=== PATIENT | female | born 1990 | race Caucasian/White ===

== ENCOUNTER 2019-07-14 11:12 | Emergency (ER) | payer OTHER, SELFPAY ==
[2019-07-14 11:17] VITALS: BP 123/77; PULSE 119; RESP 18; TEMP 36.4; O2SAT 99; BMI 26.5
--- NOTE | 2019-07-14 11:24 | US_ITS ---
STUDY: FIRST TRIMESTER OBSTETRICAL ULTRASOUND REASON FOR EXAM: Female, 29 years old. . Spotting. LMP: 05/20/2019 TECHNIQUE: Transvaginal PRIOR ULTRASOUND: None. FINDINGS: There is visualization of a single gestational sac in a normal intrauterine position. There is a visualized yolk sac. There is visualization of a live embryo. The crown-rump length (CRL) measures 1.01 cm, indicating an estimated gestational age (EGA) of 7 weeks, 1 days. The mean sac diameter corresponds to 8 weeks and 1 day. The average sonographic age is 7 weeks and 5 days. The estimated delivery date is 02/25/2020. There is demonstrated cardiac activity with a heart rate of 151 bpm. The uterus measures 11.1 x 7.6 x 6.1 cm. There is no demonstrated uterine fibroid. The cervix is closed. The right ovary measures 4.5 x 3.5 x 3.3 cm. There is a 3.1 x 3.0 cm cyst in the right ovary. There is no visualized right adnexal mass or complex lesion. The left ovary measures 3.0 x 2.5 x 2.3 cm. There is no left ovarian cyst. There is no visualized left adnexal mass or complex lesion. There is no fluid in the cul de sac. US/Transvaginal w/Preg US IMPRESSION: Single live intrauterine gestation at approximately 7 weeks and 5 days based on the current ultrasound. Right ovarian cyst. Electronically Signed: Juan Key, at 13:57 EDT Tel , Service support ,
--- NOTE | 2019-07-14 11:25 | ED.DCSUM_ITS ---
History of Present Illness <Jorge Crawford - Last Filed: 07/14/19 11:49> Informant: Patient, Significant Other Onset: Today Context: Sudden Onset Timing: Continuous Quality: spotting Location: vaginal Current Severity: Mild Maximum Severity: Moderate Worsened by: nothing Relieved by: nothing Associated Symptoms: denies Narrative: 29-year-old female who is Ab2 presents to the emergency department vaginal bleeding. She is approximately 8 to 9 weeks . She noticed some spotting this morning. She has not had bleeding up until this time. She has a history of 2 miscarriages. Her most recent one was about 8 months ago. She had a D&C done at that time. Prior to that about a year before that she had another miscarriage. She does have 1 child. She has not yet had care for this secondary to the current pandemic from the coronavirus. She denies any abdominal pain nausea vomiting or diarrhea. She has been able to eat and drink normally. She is not lightheaded or dizzy. She denies any other symptoms of bleeding. She denies history of blood disorder. Prior similar symptoms: Yes Recent Illness/Hospitalization: No <Raymond Polanco - Last Filed: 07/14/19 14:09> Chief Complaint: Vag Bld, Preg Past Medical History <Jorge Crawford - Last Filed: 07/14/19 11:49> Prior records reviewed: Yes Past Medical History: None Surgical History: - - D&C Lives: With Family Smoking Status: Never smoker Alcohol: None Drugs: None <Raymond Polanco - Last Filed: 07/14/19 14:09> - Allergies and Home Meds Allergies/Adverse Reactions: Allergies amoxicillin [Amoxicillin] Allergy (Verified 07/14/19 11:16) Hives Primary Care Physician: Too Loza DO [NON-STAFF] - Review of Systems All systems negative except as indicated General: Denies: Chills, Fever, Malaise Eyes: Denies: Visual changes - bilaterally, Blurred Vision - bilaterally, Diplopia ENT: Denies: Rhinorrhea, Sore throat Cardiovascular: Denies: Chest pain, Palpitations, Heart racing Respiratory: Denies: Dyspnea, Cough, Sputum, Dyspnea on exertion, Orthopnea, Paroxysmal nocturnal dyspnea Gastrointestinal: Denies: Abdominal pain, Nausea, Vomiting, Diarrhea, Constipation, Melena, Hematochezia Genitourinary: Reports: - - Vaginal bleeding. Denies: Dysuria, Hematuria, Frequency Musculoskeletal: Denies: Myalgias, Arthralgias, Neck pain, Back pain, Swelling, Extremity Pain Skin: Denies: Rash, Abscess, Abrasions, Wounds Neurological: Denies: Headache, Weakness, Parasthesia Endocrine: Denies: Polyuria, Polydipsia Hematologic: Denies: Easy bruising, Easy bleeding <Raymond Polanco - Last Filed: 07/14/19 14:09> Physical Exam Vital Signs/Narrative: Vital Signs Temp Pulse Resp BP Pulse Ox 07/14/19 11:17 97.5 F L 119 H 18 123/77 H 99 <Jorge Crawford - Last Filed: 07/14/19 11:49> Vital Signs/Narrative: Vital Signs Temp Pulse Resp BP Pulse Ox 07/14/19 11:17 97.5 F L 119 H 18 123/77 H 99 Inital Vital Signs reviewed: Yes General: Well nourished, Well developed, No Acute Distress Head: Normocephalic, Atraumatic Eyes: Perrl, EOMI ENT: Moist mucous membranes, No rhinorrhea Neck: Supple, Nontender, No lymphadenopathy, No JVD Cardiovascular: Regular rate, Regular rhythm, No murmurs Respiratory: No distress, CTA bilaterally, Chest nontender Abdomen: Soft, Nontender, Nondistended, Normal bowel sounds, No masses Back: Nontender, Normal Inspection. Negative for: CVA tenderness Extremities: Nontender, No edema Skin: Normal color, No rash, No Trauma Neurological: Alert, Oriented x3 Psychological: Normal Mood, Tearful <Raymond Polanco - Last Filed: 07/14/19 14:09> Diagnostic/Tx/Re-eval - Medical Decision Making Patient was seen with Raymond the physician's administrative services assistant agree with history and physical as above patient reports she wiped once and saw some blood-tinged fluid concerned she might be at 7 weeks she has not seen a physician she has taken home test she has prior miscarriages she has no pain no other complaints on exam the abdomen soft and nontender see the chart for full details we will check hCG and proceed from there <Jorge Crawford - Last Filed: 07/14/19 11:49> - Medical Decision Making Patient has no active bleeding on presentation to the emergency department. Laboratory work-up was unremarkable. Transvaginal ultrasound demonstrates single live intrauterine 7 weeks 5 days no other abnormalities are noted. Patient was reassured. She will be discharged with close follow-up with [facility] as an outpatient. She will be given referral to 1 to establish. Return precautions given. Discharged Impressions Obstetrics Ultrasound 07/14/19 11:24 IMPRESSION: Single live intrauterine gestation at approximately 7 weeks and 5 days based on the current ultrasound. Right ovarian cyst. Electronically Signed: Juan Key, at 13:57 EDT Tel , Service support , 07/14/19 11:24 Transvaginal w/Preg US [US] Stat Laboratory Results 07/14/19 07/14/19 07/14/19 11:45 12:02 12:02 WBC 7.1 RBC 4.43 Hgb 11.9 L Hct 36.1 L MCV 81.5 MCH 26.9 L MCHC 33.0 RDW Std Deviation 42.6 RDW Coeff of Joy 14.5 Plt Count 186 MPV 9.4 Immature Gran % (Auto) 0.300 Neut % (Auto) 61.6 Lymph % (Auto) 27.9 [place] % (Auto) 7.4 Eos % (Auto) 2.7 Baso % (Auto) 0.1 Absolute Neuts (auto) 4.4 Absolute Lymphs (auto) 1.97 Nucleated RBC % 0 HCG, Quant [id number] H Urine Color Yellow Urine Clarity Sl. Cloudy Urine pH 6.5 Ur Specific [place] 1.010 Urine Protein Negative Urine Glucose (UA) Normal Urine Ketones Negative Urine Occult Blood Negative Urine Nitrite Negative Urine Bilirubin Negative Urine Urobilinogen Normal Ur Leukocyte Esterase Negative Urine RBC 0 SEEN Urine WBC 0 SEEN Ur Squamous Epith Cells 0 SEEN Urine Bacteria 0 SEEN Urine Mucus 0 SEEN Blood Type 07/14/19 12:02 WBC RBC Hgb Hct MCV MCH MCHC RDW Std Deviation RDW Coeff of Joy Plt Count MPV Immature Gran % (Auto) Neut % (Auto) Lymph % (Auto) [place] % (Auto) Eos % (Auto) Baso % (Auto) Absolute Neuts (auto) Absolute Lymphs (auto) Nucleated RBC % HCG, Quant Urine Color Urine Clarity Urine pH Ur Specific [place] Urine Protein Urine Glucose (UA) Urine Ketones Urine Occult Blood Urine Nitrite Urine Bilirubin Urine Urobilinogen Ur Leukocyte Esterase Urine RBC Urine WBC Ur Squamous Epith Cells Urine Bacteria Urine Mucus Blood Type O POSITIVE <Raymond Polanco - Last Filed: 07/14/19 14:09> ED Disposition <Jorge Crawford - Last Filed: 07/14/19 11:49> <Raymond Polanco - Last Filed: 07/14/19 14:09> - Plan for ED Patient: Disposition: Home or Assisted Living Diagnosis: Threatened miscarriage Instructions: ED Possible Miscarriage Threatened Referrals: Too Loza DO [NON-STAFF] - Rashaun Lyn MD [STAFF PHYSICIAN] -
[2019-07-14 11:50] LABS: Bacteria 0 SEEN /hpf (None Seen); Mucous, Urine 0 SEEN /hpf (<or=2+); Red Blood Cells-Urine 0 SEEN /hpf (0-5); Squamous Epithelial Cells - UA 0 SEEN /hpf (5-10); White Blood Cells 0 SEEN /hpf (0-5)
[2019-07-14 11:51] LABS: Color, Urine Yellow (Yellow); Glucose, Dipstick Normal (Normal); Ketone-Dipstick Negative (Negative); Leukocyte Esterase-Dipstick Negative /ul (Negative); Nitrite-Dipstick Negative (Negative); Occult Blood-Urine Negative /ul (Negative); Protein-Dipstick Negative (Negative); Urine Bilirubin Dipstick Negative (Negative); Urine Clarity Sl. Cloudy (Clear); Urine Urobilinogen Normal (Normal); Urine pH 6.5 (5.0 - 8.0)
[2019-07-14 12:14] LABS: Absolute Lymphocyte Count 1.97 X10^3/uL (0.83-4.51); Absolute Neutrophil Count 4.4 X10^3/uL (2.0-7.7); Basophil# 0.01 X10^3/uL; Basophil% 0.1 % (0-1); Eosinophil# 0.19 X10^3/uL; Eosinophils% 2.7 % (0-5); Hematocrit 36.1 % (37-47); Hemoglobin 11.9 g/dL (12.0-15.0); Lymphocyte # 1.97 X10^3/ul (4.0); Lymphocyte % 27.9 % (19-41); Mean Corpuscular Hgb 26.9 pg (27.0-32.0); Mean Corpuscular Volume 81.5 fL (81-99); Mean Platelet Vol. 9.4 fl (6.2-12.0); Monocyte# 0.52 X10^3/uL; Monocyte% 7.4 % (0-10); NRBC Flagged by Analyzer 0 % (0-5); Neutrophil # 4.35 X10^3/uL (2.7-7.7); Neutrophil % 61.6 % (47-70); POSITIVE MORPHOLOGY YES; Platelet Count 186 K/mm3 (150-450); RBC Distribution Width CV 14.5 % (11.6-14.6); RBC Distribution Width SD 42.6 fl (35.1-43.9); Red Blood Count 4.43 M/mm3 (4.2-5.4); White Blood Count 7.1 K/mm3 (4.4-11.0)
[2019-07-14 12:18] LABS: Differential Indicated SCAN CRITERIA MET
[2019-07-14 14:24] VITALS: BP 118/79; PULSE 72; RESP 16; O2SAT 99
== END 2019-07-14 14:25 | disposition home or self-care (01) ==
PROVIDERS: Emergency Provider Physician Assistant Medical
DX: O20.0 Threatened abortion (principal)
CPT/HCPCS: 76817; 81001; 84702; 85025; 86900; 86901; 99285

== ENCOUNTER → 2019-07-19 | Outpatient (CLI) | payer SELFPAY ==
[2019-07-19 11:49] VITALS: BMI 26.5
[2019-07-19 14:10] LABS: Amphetamine Urine VISTA NEGATIVE (<1000 ng/mL); Barbiturate Urine VISTA NEGATIVE (< 200 ng/mL); Benzodiazepine Urine VISTA NEGATIVE (< 200 ng/mL); Cocaine Urine VISTA NEGATIVE (< 300 ng/mL); Ecstacy Urine VISTA NEGATIVE (< 500 ng/mL); Methadone Urine VISTA NEGATIVE (< 300 ng/mL); PCP Urine VISTA NEGATIVE (< 25 ng/mL); THC Urine VISTA NEGATIVE (< 50 ng/mL); Vista UDS pH Range 6
[2019-07-19 16:11] LABS: Chlamydia Trachomatis by PCR Negative (Negative); Neisserai gonorrhoeae by PCR Negative (Negative); Probe Check PASS; Sample Adequacy Control PASS; Specimen Processing Control PASS
== END | disposition home or self-care (01) ==
LOC: LABSPEC 13:29
PROVIDERS: Referring Provider Obstetrics & Gynecology; Visit Provider Obstetrics & Gynecology
DX: O09.90 Supervision of high risk pregnancy, unspecified, unspecified trimester (principal); O26.20 Pregnancy care for patient with recurrent pregnancy loss, unspecified trimester; O99.019 Anemia complicating pregnancy, unspecified trimester; D64.9 Anemia, unspecified; O26.899 Other specified pregnancy related conditions, unspecified trimester; N89.8 Other specified noninflammatory disorders of vagina; Z3A.00 Weeks of gestation of pregnancy not specified
CPT/HCPCS: 80307; 87070; 87086; 87088; 87205; 87491; 87591

== ENCOUNTER → 2019-08-02 10:59 | Outpatient (CLI) | payer SELFPAY ==
[2019-08-02 10:37] VITALS: BMI 26.5
[2019-08-02 11:34] LABS: Absolute Neutrophil Count 5.1 X10^3/uL (2.0-7.7); Basophil# 0.03 X10^3/uL; Basophil% 0.4 % (0-1); Eosinophil# 0.15 X10^3/uL; Hematocrit 37.4 % (37-47); Hemoglobin 12.2 g/dL (12.0-15.0); Lymphocyte % 22.5 % (19-41); Mean Corp Hgb Conc 32.6 g/dL (32-36); Mean Corpuscular Hgb 26.9 pg (27.0-32.0); Mean Corpuscular Volume 82.6 fL (81-99); Mean Platelet Vol. 9.7 fl (6.2-12.0); Monocyte# 0.53 X10^3/uL; NRBC Flagged by Analyzer 0 % (0-5); Neutrophil # 5.12 X10^3/uL (2.7-7.7); Neutrophil % 67.7 % (47-70); Platelet Count 218 K/mm3 (150-450); RBC Distribution Width CV 14.5 % (11.6-14.6); RBC Distribution Width SD 43.7 fl (35.1-43.9); Red Blood Count 4.53 M/mm3 (4.2-5.4); White Blood Count 7.6 K/mm3 (4.4-11.0)
[2019-08-02 16:43] LABS: HIV - WCH Non-Reactive (Nonreactive); Hepatitis B Surface Antigen Non-Reactive (Nonreactive); Hepatitis C Antibody Non-Reactive (Nonreactive); Rubella IgG 201.4 IU/mL
[2019-08-08 00:55] LABS: Rapid Plasmin Reagin (RPR) NONREACTIVE (NONREACTIVE)
== END ==
PROVIDERS: Referring Provider Obstetrics & Gynecology; Visit Provider Obstetrics & Gynecology
DX: O09.90 Supervision of high risk pregnancy, unspecified, unspecified trimester (principal); O26.20 Pregnancy care for patient with recurrent pregnancy loss, unspecified trimester; O99.019 Anemia complicating pregnancy, unspecified trimester; D64.9 Anemia, unspecified; Z3A.00 Weeks of gestation of pregnancy not specified
CPT/HCPCS: 36415; 85025; 86592; 86703; 86762; 86803; 86850; 86900; 86901; 87340

== ENCOUNTER → 2019-10-07 12:13 | Outpatient (CLI) | payer SELFPAY ==
[2019-08-02 10:37] VITALS: BMI 26.5
[2019-09-05 09:07] VITALS: BMI 25.0
--- NOTE | 2019-10-07 12:14 | US_ITS ---
STUDY: SECOND AND THIRD TRIMESTER OBSTETRICAL ULTRASOUND REASON FOR EXAM: Female, 29 years old anatomy LMP: 05/25/2019. TECHNIQUE: Transabdominal TECHNICAL QUALITY: Adequate. PRIOR ULTRASOUND: Comparison is made with prior examination dated 07/14/2019. FINDINGS: There is a single intrauterine fetus. The fetus is in a cephalic presentation. There is demonstrated cardiac activity with a heart rate of 158 bpm. There is a normal amniotic fluid volume. The largest amniotic fluid pocket measures 4.1 cm x 3.8 cm. The amniotic fluid index (KATHERINE) is within normal limits. The placenta is posterior in location and is not low lying. There are Grade 0 placental changes. The cervix measures 3.9 cm in length. The bilateral adnexal regions are normal. BIOMETRY: BPD: 4.3 cm: 19 weeks, 0 days HC: 16.6 cm: 19 weeks, 1 days AC: 14.7 cm: 19 weeks, 6 days FL: 3.2 cm: 19 weeks, 5 days CI: 75% FL/BPD: 74% FL/HC: FL/AC: 22% HC/AC: 1.13 age by current US: 19 weeks, 1 days. NURY by current US: 03/01/2020. Estimated weight: 315 grams, +/- 47 grams, 66.7 %. age by prior US: 18 weeks, 3 days. NURY by prior US: 03/05/2020.. Age by LMP: 19 weeks, 2 days. NURY by LMP: 02/29/2020. ANATOMY: Gender: Female Cranium: Normal lateral ventricles. Normal choroid plexus. Normal cerebellum. Normal cisterna magna. Normal face, nose and lips. Chest: Normal 4-chamber heart. Abdomen/Pelvis: Normal diaphragm. Normal stomach. Normal abdominal wall. Normal cord insertion. Normal 3 vessel cord. Normal kidneys. Normal bladder. Spine: Normal cervical spine. Normal thoracic spine. Normal lumbar spine. Normal sacrum. Extremities: Normal bilateral upper extremities. Normal bilateral lower extremities. US/OB Anatomy Scan IMPRESSION: Single live uterine gestation with a mean gestational age of 1203/05/2020. The measurements obtained today fall within the normal expected range. Electronically Signed: Goldy Arvizu, at 15:11 EDT , Service support ,
== END ==
PROVIDERS: Referring Provider Nurse Practitioner Women's Health; Visit Provider Nurse Practitioner Women's Health
DX: O09.90 Supervision of high risk pregnancy, unspecified, unspecified trimester (principal); Z3A.00 Weeks of gestation of pregnancy not specified
CPT/HCPCS: 76805

== ENCOUNTER → 2019-10-24 09:33 | Outpatient (CLI) | payer SELFPAY ==
[2019-10-24 09:04] VITALS: BMI 26.6
[2019-10-24 10:02] LABS: Absolute Lymphocyte Count 1.79 X10^3/uL (0.83-4.51); Absolute Neutrophil Count 6.4 X10^3/uL (2.0-7.7); Basophil# 0.02 X10^3/uL; Basophil% 0.2 % (0-1); Eosinophils% 1.1 % (0-5); Hematocrit 32.8 % (37-47); Hemoglobin 10.4 g/dL (12.0-15.0); Lymphocyte # 1.79 X10^3/ul (4.0); Lymphocyte % 20.2 % (19-41); Mean Corp Hgb Conc 31.7 g/dL (32-36); Mean Corpuscular Volume 85.2 fL (81-99); Mean Platelet Vol. 9.4 fl (6.2-12.0); Monocyte% 5.6 % (0-10); NRBC Flagged by Analyzer 0 % (0-5); Neutrophil # 6.36 X10^3/uL (2.7-7.7); Neutrophil % 71.8 % (47-70); Platelet Count 184 K/mm3 (150-450); RBC Distribution Width CV 13.9 % (11.6-14.6); RBC Distribution Width SD 42.9 fl (35.1-43.9); Red Blood Count 3.85 M/mm3 (4.2-5.4); White Blood Count 8.9 K/mm3 (4.4-11.0)
== END ==
LOC: PAVLAB 09:34
PROVIDERS: Referring Provider Obstetrics & Gynecology; Visit Provider Obstetrics & Gynecology
DX: R04.0 Epistaxis (principal)
CPT/HCPCS: 36415; 85025

== ENCOUNTER → 2020-02-07 | Outpatient (CLI) | payer SELFPAY ==
[2020-02-07 09:34] VITALS: BMI 29.0
== END | disposition home or self-care (01) ==
LOC: LABSPEC 16:02
PROVIDERS: Visit Provider Obstetrics & Gynecology
DX: O09.90 Supervision of high risk pregnancy, unspecified, unspecified trimester (principal); Z3A.00 Weeks of gestation of pregnancy not specified
CPT/HCPCS: 87081

== ENCOUNTER → 2020-02-14 | Outpatient (CLI) | payer OTHER, SELFPAY ==
[2020-02-14 09:37] VITALS: BMI 29.2
[2020-02-14 11:04] LABS: ROM Internal Control Test YES-OK TO RESULT pt. (Internal QC); ROM Patient Test Negative (Negative)
== END | disposition home or self-care (01) ==
LOC: LABSPEC 10:30
PROVIDERS: Visit Provider Obstetrics & Gynecology
DX: N89.8 Other specified noninflammatory disorders of vagina (principal)
CPT/HCPCS: 84112

== ENCOUNTER 2020-02-17 10:03 | Outpatient (CLI) | payer OTHER, SELFPAY ==
[2020-02-14 09:37] VITALS: BMI 29.2
[2020-02-17 10:19] VITALS: BMI 29.5
[2020-02-17 10:21] VITALS: TEMP 36.9
[2020-02-17 10:29] VITALS: BP 105/66; PULSE 115
[2020-02-17 10:55] LABS: ROM Internal Control Test YES-OK TO RESULT pt. (Internal QC); ROM Patient Test Negative (Negative)
--- NOTE | 2020-02-17 11:25 | OB.TRI.PN_ITS ---
Progress Notes Date of Service: 02/17/20 Progress Note: Patient presents for triage evaluation secondary to contractions FHT: 130 Moderate variability reactive no decelerations category I tracing [place]: q4-5 Contractions Assessment and plan: false labor no cervical change Reactive NST, reassuring maternal and status patient discharged to home to follow-up as scheduled. See problem list details for additional plan information. Laboratory Studies: Laboratory Tests 02/17/20 Range/Units 10:20 Vag Amniotic Fld Detect Negative (Negative) - Problem List (1) False labor Status: Acute Multi Select Codes - Urinary/Genital Urinary/Genital CPT Codes: 01183-34 non-stress test Interp
== END 2020-02-17 11:30 | disposition home or self-care (01) ==
LOC: WPOUT 10:16 → WP 10:18
PROVIDERS: Referring Provider Obstetrics & Gynecology; Visit Provider Obstetrics & Gynecology
DX: O47.9 False labor, unspecified (principal); Z3A.00 Weeks of gestation of pregnancy not specified
CPT/HCPCS: 59025; 59050; 84112; 99218; G0378

== ENCOUNTER 2020-02-22 01:07 | Inpatient (IN) | payer OTHER, SELFPAY ==
[2019-07-19 11:49] VITALS: BMI 26.5
[2020-02-21 10:39] VITALS: BMI 29.8
[2020-02-22] VITALS (64 sets, daily range): BP systolic 82–169; BP diastolic 44–111; PULSE 93–148; RESP 16; TEMP 36–37.8; O2SAT 82–100; BMI 30.4
[2020-02-22] MEDS: Lactated Ringers 500 ML 999 ML IV ×2 (01:40→05:19)
[2020-02-22 01:51] LABS: Absolute Lymphocyte Count 2.43 X10^3/uL (0.83-4.51); Absolute Neutrophil Count 8.2 X10^3/uL (2.0-7.7); Basophil# 0.04 X10^3/uL; Basophil% 0.3 % (0-1); Eosinophils% 0.8 % (0-5); Hematocrit 27.6 % (37-47); Hemoglobin 8.4 g/dL (12.0-15.0); Lymphocyte # 2.43 X10^3/ul (4.0); Lymphocyte % 20.5 % (19-41); Mean Corp Hgb Conc 30.4 g/dL (32-36); Mean Corpuscular Hgb 21.9 pg (27.0-32.0); Mean Corpuscular Volume 72.1 fL (81-99); Mean Platelet Vol. 9.1 fl (6.2-12.0); Monocyte# 0.79 X10^3/uL; Monocyte% 6.7 % (0-10); NRBC Flagged by Analyzer 0.3 % (0-5); Neutrophil # 8.24 X10^3/uL (2.7-7.7); Neutrophil % 69.6 % (47-70); Platelet Count 212 K/mm3 (150-450); RBC Distribution Width CV 17.1 % (11.6-14.6); RBC Distribution Width SD 44.3 fl (35.1-43.9); Red Blood Count 3.83 M/mm3 (4.2-5.4); White Blood Count 11.9 K/mm3 (4.4-11.0)
[2020-02-22] MEDS: Lactated Ringers 1,000 ML 50 ML IV (02:11)
[2020-02-22] MEDS: Ondansetron 4 MG/2 ML Vial IV (02:51)
[2020-02-22] MEDS: fentaNYL 100 MCG/2 ML Ampul IV (02:53)
[2020-02-22] MEDS: 0.9% Saline Lock 10 ML Syringe IV ×2 (02:53→10:32)
[2020-02-22] MEDS: fentaNYL-bupivacaine (epidural) 100 ML BAG EPIDURAL (04:23)
--- NOTE | 2020-02-22 04:50 | PCM.HPOB.BLA ---
- Problem List (1) Active labor at term Status: Acute (2) Influenza vaccination declined Status: Acute (3) Nasal bleeding Status: Acute Comment: New onset twice weekly nose bleeds. Does have seasonal allergies, but not taking any medications. Will check CBC to look at platelets. Discussed taking antihistamine. (4) Nausea/vomiting in Status: Acute Comment: pepcid (5) Status: Acute Qualifiers: Comment: genetic, carrier, and ntd screening declined. NL anatomy (6) Recurrent loss Status: Acute Comment: APL testing declined. Had extremely heavy bleeding with last miscarriage. Lost large amount of blood before going for D&C. Very anxious about bleeding at time of delivery as a result of this experience. 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 Is patient in pain?: No Allergies amoxicillin [Amoxicillin] Allergy (Verified 02/21/20 10:39) Hives Medications Prenatabs FA 02/17/20 [History Confirmed 02/21/20] Last Menstral Period: 05/20/19 Zika: Zika virus screening: Negative : No PFSH PFSH Medical History Anemia (Acute) H/O miscarriage, currently (Acute) IBS (irritable bowel syndrome) (Acute) (Acute) Supervision of normal first (Acute) Surgical History H/O dilation and curettage (Acute) H/O foot surgery (Acute) Family History Aunt COPD (chronic obstructive pulmonary disease) Father Heart disease Grandfather Diabetes Aunt Cancer Social History (Updated 02/21/20 @ 11:[address] Kerry Pruett MD) adopted: No household members: family housing: house number of children: 1 current occupational status: unemployed pets and animals: Yes history of recent travel: No sexually active: Yes Smoking Status: Never smoker second hand exposure: No alcohol intake: never substance use type: does not use seatbelt use: always do you feel safe at home: Yes additional social history: Gustavo Pregancy History 5 Elective abortions Hx Para 1 Spontaneous abortions 3 Hx # Term Pregnancies 1 Ectopic pregnancies Hx # Pregnancies Multiple births # of living children 1 Past Pregnancies Del. Date Name GA/Weeks Outcome Route Bth Weight Gen Labor Lgth Anesthesia Del Locatn Provider FOB 01/14/14 [place] 40 live - full term 7lbs 3oz Female 24 hours epidural [facility] Missyjavier Chen HPI 38 WK OB: Details: ANA MO is a 29 year old who presents for routine OB visit. OB Visit NURY Calculator Estimated Delivery Date Method Current WG Current Estimate 02/29/20 Ultrasound #1 38w 6d Expected Delivery Route/Plan Labor Preferences- labor support person: Gustavo labor preferences: Open to standard interventions, NOT interested in tub, does NOT want mirror while pushing as she is somewhat squeamish. OK with baby meds. pain management options preferred: Desires natural labor (epidural didn't work last ) cut cord/dad catch: No - is VERY squeamish : Yes PP control planned: declines discussed possible routes of delivery and associated risks: discussed possible delivery modalities and possible indications for each including R/B/A of , VAVD, FAVD, and CS. questions answered. special requests: no Specific Issue/Plans flu vaccine: declines tdap vaccine: 12/27/2019 rhogam: NA LARC form signed: 12/27/2019 Problem list reviewed and updated with the most current plan of care details and appropriate orders placed. Relevant counseling for the gestational age provided. Continue routine care and follow up unless otherwise noted in visit notes/problem list details Initial Weight: 136 lb Date EGA Weight BP Urine Prot Glucose FHR FuHt Pres Dilation Effaced St Visit Note 07/19/19 7w 6d 136 lb (+0 oz) 170 08/02/19 9w 6d 136 lb (+0 oz) 100/76 Negative Negative 157 SM- no vb cramping 08/13/19 11w 3d 139 lb (+3 lb) 100/72 Negative Negative 150 SM- some spotting 08/23/19 12w 6d 140 lb (+4 lb) 100/68 Negative Negative 150 SM- no vb cramping doing well still anxious 09/05/19 14w 5d 143 lb 4 oz (+7 lb 4 oz) 100/60 Negative Negative 150 15 SM- no vb cramping increase in nausea, also having heartburn- start on pepcid 10/24/19 21w 5d 153 lb (+17 lb) 116/62 Negative Negative 150 21 GP - no VB/LOF/Cramping/DFM. Having nose bleeds twice weekly. Will check CBC. Has seasonal allergies. Start claritin. 11/15/19 24w 6d 156 lb (+20 lb) 110/62 145 25 SM- no vb lof good fm no regular ctx 12/13/19 28w 6d 161 lb (+25 lb) 112/60 130 28 Sm- no vb lof good fm no regular ctx 12/27/19 30w 6d 161 lb 8 oz (+25 lb 8 oz) 110/78 Negative Negative 160 30 GP - no LOF, VB, DFM, ctx. TDAP given. Larc form signed - declines. 01/10/20 32w 6d 163 lb 6 oz (+27 lb 6 oz) 110/68 Negative Negative 145 32 GP - no LOF, VB, DFM, regular ctx. Discussed labor preferences and routes of delivery. 01/24/20 34w 6d 164 lb 2 oz (+28 lb 2 oz) 110/68 Negative Negative 155 34 Cephalic 0 GP - no LOF, VB, DFM, ctx. Very anxious after hemorrhage with last miscarriage - discussed management of hemorrhage. Offered medication for anxiety and patient declines. 02/07/20 36w 6d 166 lb 6 oz (+30 lb 6 oz) 110/62 Negative Negative 155 37 Cephalic 0 GP - no LOF, VB, DFM, reg ctx. GBS done today. 02/14/20 37w 6d 168 lb (+32 lb) 102/70 Negative Negative 145 38 Cephalic 1 SM- no vb good fm questionable LOF- rom plus sent. 02/21/20 38w 6d 171 lb 2 oz (+35 lb 2 oz) 110/74 140 38 Cephalic 2 50 -2 GP - no LOF, VB, DFM. Has been having intermittent contractions all night. Appears uncomfortable with contractions. Membranes swept. Labor precautions reviewed. ACOG First Trimester First Trimester: Desire for , Alcohol, Tobacco Cessation, Illicit/Recreational Drug/Substance Use, Intimate Partner Violence, Barriers to care, Unstable Housing, Communication Barriers, Environmental/Work Hazards, Anticipated Course of Care, Toxoplasmosis Precations, Use of Any medications, Sexual activity, Exercise, Dental Care, Sauna/Hot tub use, Seat Belt use, Childbirth classes/Hospital facilities, , Travel, Indications for US and Screening for Aneuploidy Diagnostics Diagnostics Diagnostics Hgb 10.4 g/dL (12.0-15.0) L 10/24/19 Hct 32.8 % (37-47) L 10/24/19 Details: HIV: Urine Culture: Sequential Screen: NIPT Screen: ROS Const Reports system reviewed and no additional complaints, except as docu Eyes Reports system reviewed and no additional complaints, except as docu ENT Reports system reviewed and no additional complaints, except as docu Card Reports system reviewed and no additional complaints, except as docu Resp Reports system reviewed and no additional complaints, except as docu GI Reports system reviewed and no additional complaints, except as docu Reports system reviewed and no additional complaints, except as docu, Denies abnormal vaginal bleeding, Denies painful urination, Denies pelvic pain, Denies vaginal discharge, Denies vaginal odor, Denies vaginal itching Musc Reports system reviewed and no additional complaints, except as docu Skin/Breast Reports system reviewed and no additional complaints, except as docu Neuro Yes system reviewed and no additional complaints, except as docu Psych Reports system reviewed and no additional complaints, except as docu Exam Const General: cooperative, healthy appearing, comfortable, no acute distress, well developed, well groomed Nutritional Appearance: average body habitus, well nourished Orientation: alert, awake, oriented x3 HENMT Head: normal to inspection, normocephalic, atraumatic Eyes Pupils: PERRL, accommodation normal Resp Effort & Inspection: normal respiratory effort, able to speak in complete sentences, symmetric chest movement Cardio Rate: regular rate GI Palpation: soft, no guarding, no masses, nontender Skin General: no rashes or lesions noted, elasticity normal, turgor normal Neuro General: alert, awake, oriented x3 Cranial Nerves: CN's II-XI intact bilaterally, sense of smell intact, PERRL, accommodation normal, EOM intact bilaterally Speech: speech normal Gait: normal gait Psych Appearance: grossly normal, well kempt Mental Status: mental status grossly normal Mood: congruent mood Affect: normal affect Speech and Movement: speech and movement normal Attitude: cooperative Thought Process: normal Thought Content: normal Judgment: judgment good Assessment & Plan Problems 1. False labor O47.9 2. 34 weeks gestation of Z3A.34 electronic covid test ordered 01/22/2020va (scheduled for 02/24/20 at 0955) 3. Influenza vaccination declined Z28.21 4. Nasal bleeding R04.0 New onset twice weekly nose bleeds. Does have seasonal allergies, but not taking any medications. Will check CBC to look at platelets. Discussed taking antihistamine. 5. Nausea/vomiting in O21.9 pepcid 6. Recurrent loss N96 APL testing declined. Had extremely heavy bleeding with last miscarriage. Lost large amount of blood before going for D&C. Very anxious about bleeding at time of delivery as a result of this experience. 7. Supervision of high risk , antepartum O09.90 PRR NURY 02/29/2020 Antonia Eller PC: [place] Spouse: Gustavo 8. 38 weeks gestation of Z3A.38 genetic, carrier, and ntd screening declined. NL anatomy Patient presents IAL, plan expectant management for , pitocin/AROM PRN if needed. Pain management: plans epidural. GBS negative. Management of any complications: none I have reviewed the [facility] and made any clinically relevant updates. UPDATE- I have seen the patient and performed any clinically relevant updates to the history and physical exam. Kerry Pruett MD
[2020-02-22] MEDS: Lactated Ringers 1,000 ML 200 ML IV (07:22)
[2020-02-22] MEDS: Oxytocin 30 units/NS 500 ml 30 UNITS/500 ML IV.SOLN 334 UNITS IV (08:01)
--- NOTE | 2020-02-22 08:19 | OP.PCM_ITS ---
Problem List (1) Active labor at term Status: Acute (2) Influenza vaccination declined Status: Acute (3) Nasal bleeding Status: Acute Comment: New onset twice weekly nose bleeds. Does have seasonal allergies, but not taking any medications. Will check CBC to look at platelets. Discussed taking antihistamine. (4) Nausea/vomiting in Status: Acute Comment: pepcid (5) Status: Acute Qualifiers: Comment: genetic, carrier, and ntd screening declined. NL anatomy (6) Recurrent loss Status: Acute Comment: APL testing declined. Had extremely heavy bleeding with last miscarriage. Lost large amount of blood before going for D&C. Very anxious about bleeding at time of delivery as a result of this experience. (7) Supervision of high risk , antepartum Status: Acute Comment: PRR NURY 02/29/2020 Antonia Eller PC: [place] Spouse: Gustavo Vaginal Delivery Maternal Presentation: Active Labor 29-year-old G5, P1 at 39 weeks gestation admitted for active labor. She made rapid cervical change to complete dilation without augmentation. Amniotic Membrane Rupture Type: Artificial Amniotic Fluid Description: Clear Final NURY: 02/29/20 Gestational age: 39 Weeks and 0 Days Date of Procedure: 02/22/20 Pre-Operative Diagnosis: Term , active labor Post-Operative Diagnosis: Same Surgery/ Procedure Performed: Spontaneous Vaginal Delivery Type of Anesthesia: Epidural Description of Procedure: Patient began pushing and delivered the head in the GRETCHEN presentation. The head was delivered atraumatically and no nuchal cord was noted. The anterior and posterior shoulders delivered without complication followed by the rest of the infant and the was placed on the maternal abdomen. Delayed cord clamping was employed for approximately 60 seconds. Cord was clamped and cut and gentle traction was applied to the cord and the placenta delivered spontaneously immediately following it was noted to be intact with three-vessel cord. The perineum and vagina were inspected and a midline second-degree perineal la ceration was noted and repaired in the standard fashion using 3-0 Vicryl rapide suture. EBL was 150 cc. Patient and tolerated delivery well. Presentation: Vertex, GRETCHEN Placental Delivery Description: Spontaneous Placenta Disposition: [facility] Cord Vessel Description: 3 Vessels Cord Entanglement: None Estimated Blood Loss: 150 Infant A gender: Female (1 minute): 8 (5 minute): 9 Episiotomy Description: None Laceration: Midline, Perineal Extension/lac, 2nd degree Medications given after delivery: IV Pitocin Complications: None Multi Select Codes - Urinary/Genital Urinary/Genital CPT Codes: 42404 Vaginal Delivery [facility]
--- NOTE | 2020-02-22 08:22 | DCINST_ITS ---
Discharge Diet: No Restrictions Discharge Activity: Return to Normal Activity, May not drive while taking narcotic pain medications., May Shower May resume sexual activity in: 4-6 weeks Additional Activity Instructions:: Nothing in the vagina for 4-6 weeks. You may return to work/school in 6 weeks. Call your doctor if your incision/area has: Continuous Slow Oozing, Sudden Increased Bleeding, Increased Pain/ Swelling, Increased Redness, Foul Smelling Discharge Additional Instructions: If you experience any of the following, contact your healthcare provider. * Bleeding that soaks a pad every hour for 2 hours * Fever 100.4 or higher * Unrelieved incision or abdominal pain * Swelling, redness, discharge or bleeding from your incision or episiotomy site * Your incision begins to separate * Problems urinating (including inability to urinate or burning while urinating). * Visual changes * Severe headache * Flu-like symptoms * Pain or redness in one of both of your breasts * Pain, warmth, tenderness or swelling in your legs, especially the calf area * Frequent nausea and vomiting * Symptoms of depression or anxiety If you experience any of the following, call 911 or go to the nearest Emergency Room. * Chest pain * Problems breathing * Seizure activity * Partial or complete paralysis of a body part, slurred speech, weakness or drooping of the face, or a sudden inability to walk or hold your balance Allergies/Adverse Reactions: Allergies amoxicillin [Amoxicillin] Allergy (Severe, Verified 02/22/20 00:28) Anaphylaxis Medications to take at Discharge Prenatabs FA 1 tab PO DAILY 02/17/20 When: Call to make an appointment with your doctor in 6 weeks. If you had elevated Blood Pressure or 4th degree laceration you will need to be seen in 2 weeks. Primary Care Physician: Care Physician,No Primary [Primary Care Provider] - Test Results: Test results from this visit will be discussed in further detail at your follow- up appointment, if applicable.
[2020-02-22] MEDS: Acetaminophen 500 MG Tablet 1000 MG PO ×2 (12:16→21:20)
--- NOTE | 2020-02-22 23:24 | NURSING ---
pt denies feeling dizzy or lightheaded. bleeding WNL.
[2020-02-23 05:03] VITALS: TEMP 36.4
[2020-02-23 05:04] VITALS: BP 95/59; PULSE 100; RESP 16; TEMP 36.4
[2020-02-23 08:25] VITALS: BP 92/54; PULSE 95
[2020-02-23 09:29] VITALS: BP 92/54; PULSE 95; RESP 16; TEMP 36.6
[2020-02-23] MEDS: Acetaminophen 500 MG Tablet 1000 MG PO (10:01)
--- NOTE | 2020-02-23 11:50 | PCM.PN.OB ---
Patient Problems: Active and Suspected Problems (Last Reviewed 02/21/20 @ 10:39 by Mala Dixon) Active labor at term (Acute) Influenza vaccination declined (Acute) Nasal bleeding (Acute) New onset twice weekly nose bleeds. Does have seasonal allergies, but not taking any medications. Will check CBC to look at platelets. Discussed taking antihistamine. Nausea/vomiting in (Acute) pepcid Recurrent loss (Acute) APL testing declined. Had extremely heavy bleeding with last miscarriage. Lost large amount of blood before going for D&C. Very anxious about bleeding at time of delivery as a result of this experience. Supervision of high risk , antepartum (Acute) PRR NURY 02/29/2020 Antonia Eller PC: [place] Spouse: Gustavo (Acute) genetic, carrier, and ntd screening declined. NL anatomy Subjective: Patient doing well without complaints. Tolerating PO. Ambulating and voiding without difficulty. feeding well. Denies chest pain, shortness of breath, calf pain/swelling, fevers, chills, lightheadedness. - Physical Exam Vitals/I&O's: Vital Signs Temp Pulse Resp BP Pulse Ox 97.9 F 95 16 92/54 L 97 02/23/20 09:29 02/23/20 09:29 02/23/20 09:29 02/23/20 09:29 02/22/20 17:26 Oxygen Delivery Method Room Air Weight: 172 lb Body Mass Index (BMI) 30.4 Intake and Output for Last 24 Hours 02/21/20 02/22/20 02/23/20 23:59 23:59 23:59 Intake Total 2899.17 / 2899.17 Output Total 2100 / 2100 Balance 799.17 / 799.17 General: Alert, Oriented x3 Current Medications Acetaminophen (Acetaminophen 500 Mg Tablet) 1,000 mg PO Q8H PRN PRN PRN Reason: Pain Score 1-3 Last Admin: 02/23/20 10:01 Dose: 1,000 mg Documented by: Bisacodyl (Bisacodyl 10 Mg Suppository) 10 mg RECTAL UD PRN PRN Reason: If no BM Dibucaine (Dibucaine 30 Gm Tube) 1 applic TOPICAL TID PRN PRN; Protocol PRN Reason: Discomfort Hydrocortisone (Hydrocortisone 2.5% Crm) 1 applic TOPICAL TID PRN PRN; Protocol PRN Reason: Discomfort Methylergonovine Maleate (Methylergonovine 0.2 Mg/Ml Ampul) 0.2 mg IM X1 PRN PRN Reason: Excess bleeding/uterine atony Naproxen (Naproxen 250 Mg Tablet) 500 mg PO Q8H PRN PRN PRN Reason: Pain Score 1-3 Ondansetron HCl (Ondansetron 4 Mg/2 Ml Vial) 4 mg IV Q4H PRN PRN PRN Reason: Nausea Oxycodone HCl (Oxycodone 5 Mg Tablet) 5 - 10 mg PO Q4H PRN PRN PRN Reason: Pain Score 4-10 Senna/Docusate Sodium (Senna/Docusate Sodium 1 Tablet) 1 - 2 tablet PO DAILY PRN PRN PRN Reason: Constipation Simethicone (Simethicone 80 Mg Tablet) 80 mg PO PCHS PRN PRN Reason: Indigestion/Stomach pain Sodium Chloride (0.9% Saline Lock 10 Ml Syringe) 5 - 15 ml IV UD PRN PRN Reason: SALINE FLUSH Last Admin: 02/22/20 10:32 Dose: 10 ml Documented by: Medical Necessity - Tobacco Use Smoking Status: Never smoker Assessment/Plan All Active Problems (Last Reviewed 02/21/20 @ 10:39 by Mala Dixon) Active labor at term (Acute) False labor (Acute) 34 weeks gestation of (Acute) Influenza vaccination declined (Acute) Nasal bleeding (Acute) Nausea/vomiting in (Acute) Recurrent loss (Acute) Supervision of high risk , antepartum (Acute) (Acute) s/p PPD # 1 1. routine post delivery care 2. breast feeding- support given 3. rh positive 4. rubella immune
[2020-02-23 12:58] VITALS: BP 104/53; PULSE 70; RESP 16; TEMP 36.4
== END 2020-02-23 12:40 | disposition home or self-care (01) | DRG 807 ==
LOC: WPOUT 01:09 → WP 01:09
PROVIDERS: Admitting Provider Obstetrics & Gynecology; Referring Provider Obstetrics & Gynecology; Visit Provider Obstetrics & Gynecology
DX: O26.23 Pregnancy care for patient with recurrent pregnancy loss, third trimester (principal); Z37.0 Single live birth; O99.892 Other specified diseases and conditions complicating childbirth; R04.0 Epistaxis; O99.52 Diseases of the respiratory system complicating childbirth; J30.2 Other seasonal allergic rhinitis; O21.9 Vomiting of pregnancy, unspecified; O70.1 Second degree perineal laceration during delivery; Z3A.39 39 weeks gestation of pregnancy; Z28.21 Immunization not carried out because of patient refusal; Z87.59 Personal history of other complications of pregnancy, childbirth and the puerperium
CPT/HCPCS: 59025; 59050; 85025; 86850; 86900; 86901; 99218; J7120; A4216; G0378; J2405

== ENCOUNTER 2020-10-29 22:19 | Emergency (ER) | payer OTHER, SELFPAY ==
[2020-10-29 22:20] VITALS: BP 119/80; PULSE 120; RESP 18; TEMP 35.8; O2SAT 99; BMI 25.7
--- NOTE | 2020-10-29 22:36 | EDS_ITS ---
HPI History of Present Illness Chief Complaint: General Illness Informant: patient and spouse/S.O. Onset/Context/Timing Onset: Days Context: Sudden Onset Timing: Continuous Quality: Mild headache, congestion, sore throat Location: Upper respiratory area Current Severity: Mild Maximum Severity: Moderate Worsened by: nothing: Relieved by: Nothing Associated Symptoms Associated Symptoms: Hoarse voice and productive cough of green sputum Narrative Narrative: Patient is a 30-year-old Ab0 female who is not had a menstrual cycle since the summer. She delivered her child at that time. She is sexually active. She has no signs or symptoms of . She presents with upper respiratory symptoms. Onset of illness Monday. This evening she reports cough productive of green-colored sputum and hoarse voice. She does not have a barky cough. Patient denies rash. She denies exposure to Covid. She has not been vaccinated. She denies any other symptoms. She states she has recently relocated to [place]. She does not have a primary care physician Prior similar symptoms: No Recent Illness/Hospitalization: No PFSH [facility] Medical History (Updated 10/29/20 @ 22:[address] Jay Jay Gonzalez MD) Anemia H/O miscarriage, currently IBS (irritable bowel syndrome) Supervision of normal first Home Medications Prenatabs FA 1 tab PO DAILY 02/17/20 [History Last Taken Unknown] naproxen 500 mg PO BID PRN PRN #30 tab 02/22/20 [Rx Last Taken Unknown] azithromycin [Zithromax Z-Imer] 250 mg PO DAILY 5 Days #5 tab 10/29/20 [Rx Last Taken Unknown] Allergy/AdvReac Type Severity Reaction Status Date / Time amoxicillin [Amoxicillin] Allergy Severe Anaphylaxis Verified 10/29/20 22:22 Family History Aunt COPD (chronic obstructive pulmonary disease) Father Heart disease Grandfather Diabetes Aunt Cancer Surgical History H/O dilation and curettage H/O foot surgery Social History adopted: No household members: family housing: house number of children: 1 current occupational status: unemployed pets and animals: Yes history of recent travel: No sexually active: Yes Smoking Status: Never smoker second hand exposure: No alcohol intake: never substance use type: does not use seatbelt use: always do you feel safe at home: Yes additional social history: Gustavo PAUL HUMBERTO ED Constitutional Constitutional ED: Denies chills, fever(s), subjective or sweats Eyes Eyes: Denies blurry vision or change in vision ENT ENT ED: Reports rhinorrhea and sore throat; Denies ear pain Cardiovascular Cardiovascular: Denies chest pain, orthopnea or palpitations Respiratory/Chest Respiratory/Chest: Reports sputum; Denies cough, dyspnea, dyspnea on exertion or orthopnea Gastrointestinal Gastrointestinal: Denies abdominal pain, diarrhea, nausea or vomiting Genitourinary Genitourinary ED: Denies dysuria, hematuria or urinary frequency Integumentary Denies abscess or rash Neurologic Neurologic: Denies paresthesias or weakness Endocrine Endocrinology: Denies polydipsia, polyphagia or polyuria EXAM Physical Exam Const Vital Signs: 10/29/20 22:20 Temperature 96.5 F L Temperature Source Temporal Pulse Rate 120 H Respiratory Rate 18 Blood Pressure 119/80 Blood Pressure Mean 93 Pulse Ox 99 Oxygen Delivery Method Room Air Positive well nourished and well developed General Appearance ED: well developed and NAD; Negative for cyanotic or diaphoretic HEENT Reports TM's clear and moist mucous membranes HEENT Narrative: Uvula midline. There is no erythema or exudate. Head is atraumatic normocephalic. Tympanic Membrane ED: Yes TM's clear Eyes PERRL and EOMs intact bilaterally General Eye ED: Negative for pale conjunctiva or scleral icterus Neck no lymphadenopathy, supple and no JVD Neck Narrative: Trachea is midline. There is no in-store expiratory stridor. Chest Wall palpation of chest normal Resp normal respiratory effort and clear to auscultation bilaterally Cardio regular rate, regular rhythm, S1 normal heart sound, S2 normal heart sound and no murmurs GI normal to inspection, nondistended, normoactive bowel sounds Extremity normal to inspection Extremity Narrative: There is no asymmetry, swelling, discoloration, leg vein distention, palpable cords or tenderness along the distribution of the deep venous system. General Extremety ED: Negative for edema or tenderness General Extremity: Negative for edema Neuro oriented x3 and CN's II-XII intact bilaterally Sensorium / Orientation: alert Psych mental status grossly normal Skin no rashes or lesions noted, no wounds and skin turgor normal MDM MDM MDM Narrative Medical decision making narrative: Patient presents with viral-like symptoms. She now has a hoarse voice with productive cough. She may have a bacterial tracheitis. She is breast-feeding. She was treated with a azithromycin. Because she also has URI symptoms and has 2 daughters going to school a Covid t est was ordered. Discharge Plan Triage Chief Complaint: General Illness ED Provider: Jay Jay Gonzalez Dx/Rx/DC Orders Clinical Impression: Acute tracheitis with laryngitis Instructions: ED Laryngitis Prescriptions: New azithromycin [Zithromax Z-Imer] 250 mg tablet 250 mg PO DAILY 5 Days Qty: 5 RF: 0 No Action Prenatabs FA 1 tab PO DAILY RF: 0 naproxen 500 MG tablet 500 mg PO BID PRN PRN (Reason: Pain) Qty: 30 RF: 1 Primary Care Provider: Care Physician,No Primary Referrals: Nitin Ndiaye MD [STAFF PHYSICIAN] - 1 Week if not improving Care Physician,No Primary [Primary Care Provider] - Disposition Disposition: Home, Self Care
[2020-10-29 23:16] VITALS: BP 134/60; PULSE 114; RESP 18; O2SAT 99
== END 2020-10-29 23:57 | disposition home or self-care (01) ==
LOC: ED 23:04
PROVIDERS: Emergency Provider Emergency Medicine
DX: J04.2 Acute laryngotracheitis (principal)
CPT/HCPCS: 87426; 99282

== ENCOUNTER 2022-06-01 12:47 | Emergency (ER) | payer OTHER, SELFPAY ==
[2022-06-01 12:47] VITALS: BP 116/88; PULSE 83; RESP 18; TEMP 36.3; O2SAT 100; BMI 24.9
--- NOTE | 2022-06-01 13:05 | EKG12_ITS ---
Test Reason : DIZZY Blood Pressure : / mmHG Vent. Rate : 082 BPM Atrial Rate : 082 BPM P-R Int : 100 ms QRS Dur : 084 ms QT Int : 394 ms P-R-T Axes : 003 019 048 degrees QTc Int : 460 ms Sinus rhythm with short MA Otherwise normal ECG Confirmed by FITO HARRISON, TRACI ([id number]), supervising editor news reel MOSES BEDOYA ([id number]) on 06/06/2022 6:59:18 AM Referred By: Confirmed By:MISHEL PAYTON MD
--- NOTE | 2022-06-01 13:11 | EDS_ITS ---
HPI History of Present Illness Chief Complaint: Dizziness Narrative Narrative: 32-year-old female who denies significant past medical history presents with lightheadedness and near syncope worse with standing over the last few days. She states that when she stands, she feels lightheaded, and gets tunnel vision, and almost passed out. She denies any prodromal chest pain or shortness of breath. She also feels her heart beating fast and stronger than normal. Last menstrual period was at the end of last month and she is due for her menses to start next week. She relates history that she had Raynaud's type phenomenon when she was , and recently over the last few days her fingers and toes will turn purple, then return to normal color. She also feels shaky after she almost passes out. Of note, she states that her mother has problems with vasovagal near syncope/syncope, and after the patient turned 31 years old, she is starting to have problems. Additionally, she thinks that she may have POTS. [facility] Medical History (Updated 06/01/22 @ 14:59 by Isael Castillo MD) Anemia H/O miscarriage, currently IBS (irritable bowel syndrome) Supervision of normal first Home Medications Prenatabs FA 1 tab PO DAILY 02/17/20 [History Last Taken Unknown] naproxen 500 mg tablet 500 mg PO BID PRN PRN Pain #30 tabs 02/22/20 [Rx Last Taken Unknown] azithromycin 250 mg tablet (Zithromax Z-Imer) 250 mg PO DAILY 5 days #5 tabs 10/29/20 [Rx Last Taken Unknown] Allergy/AdvReac Type Severity Reaction Status Date / Time amoxicillin [Amoxicillin] Allergy Severe Anaphylaxis Verified 06/01/22 12:49 Family History Aunt COPD (chronic obstructive pulmonary disease) Father Heart disease Grandfather Diabetes Aunt Cancer Surgical History H/O dilation and curettage H/O foot surgery Social History adopted: No household members: family housing: house number of children: 1 current occupational status: unemployed pets and animals: Yes history of recent travel: No sexually active: Yes Smoking Status: Never smoker second hand exposure: No alcohol intake: never substance use type: does not use seatbelt use: always do you feel safe at home: Yes additional social history: Gustavo PAUL HUMBERTO ED ROS Narrative Constitutional: No fever, no chills. HEENT: No sore throat. No neck pain. No loss of vision. No rhinorrhea. Cardiovascular: No chest pain. Occasional palpitations. No pedal edema. Respiratory: No cough, no shortness of breath. Abdominal: No abdominal pain. No nausea. No vomiting. Genitourinary: No dysuria. No hematuria. Musculoskeletal: No myalgias. No arthralgias. Neurologic: No headaches. No dizziness or vertigo symptoms. Positive near syncope/lightheadedness. Skin: No rash. Temporarily fingers and toes reportedly turn purple, then returned to normal. Psychiatric: No depression. No anxiety. EXAM Physical Exam Narrative Exam Narrative: Afebrile. Vital signs noted. HEENT: Normocephalic. Atraumatic. PERRL, EOMI. Neck soft and supple. No point tenderness or step off. Cardiovascular: Regular rate and rhythm. No murmurs, rubs, or gallops appreciated. Respiratory: No tachypnea. Lungs clear to auscultation bilaterally. Gastrointestinal: Abdomen soft, nontender, with normoactive bowel sounds. No rebound or guarding. Neurological: Awake. Alert. Nonfocal, nonlateralizing. Skin: No rash. Normal color. No pallor. Musculoskeletal: No pedal edema. Full range of motion extremities. Const Vital Signs: 06/01/22 12:47 06/01/22 13:32 06/01/22 13:32 Temperature 97.3 F L Temperature Source Temporal Pulse Rate 83 91 Pulse Rate [Lying] Pulse Rate [Sitting (for 1 minute prior to obtaining)] Pulse Rate [Standing (for 1 minute prior to obtaining)] Respiratory Rate 18 16 Respiratory Effort Normal Non-Labored Respiratory Pattern Normal Blood Pressure 116/88 H 107/70 Blood Pressure [Lying] Blood Pressure [Sitting (for 1 minute prior to obtaining)] Blood Pressure [Standing (for 1 minute prior to obtaining)] Blood Pressure Mean 97 82 Blood Pressure Mean [Lying] Blood Pressure Mean [Sitting (for 1 minute prior to obtaining)] Blood Pressure Mean [Standing (for 1 minute prior to obtaining)] Pulse Ox 100 99 Oxygen Delivery Method Room Air Room Air 06/01/22 14:52 Temperature Temperature Source Pulse Rate Pulse Rate [Lying] 78 Pulse Rate [Sitting (for 1 minute prior to obtaining)] 89 Pulse Rate [Standing (for 1 minute prior to obtaining)] 97 Respiratory Rate Respiratory Effort Respiratory Pattern Blood Pressure Blood Pressure [Lying] 124/71 H Blood Pressure [Sitting (for 1 minute prior to obtaining)] 126/78 H Blood Pressure [Standing (for 1 minute prior to obtaining)] 127/69 H Blood Pressure Mean Blood Pressure Mean [Lying] 88 Blood Pressure Mean [Sitting (for 1 minute prior to obtaining)] 94 Blood Pressure Mean [Standing (for 1 minute prior to obtaining)] 88 Pulse Ox Oxygen Delivery Method MDM MDM MDM Narrative Medical decision making narrative: I had a lengthy discussion with the patient and her . We discussed the possibility of POTS, but leaning more towards that as a diagnosis of exclusion. She may also be experiencing vasovagal near syncope. Regarding the change in color of her hands and toes, I discussed Raynaud's phenomenon with her, and she states that has happened to her in the past when she was . She is not a smoker. She will be bolused normal saline 1 L intravenously and orthostatics obtained along with baseline laboratory work and EKG. I will check a troponin to evaluate her palpitations over the last few days, but I have low suspicion for an acute coronary syndrome. EKG was obtained and interpreted by myself which demonstrates sinus rhythm with a short MS but no acute ST changes. No STEMI or ectopy. I reviewed her prior ED visits and found them noncontributory to her current problem. I reviewed her laboratory work, and she has a normal white count of 4.5, hemoglobin of 12.6, hematocrit 38.1. Platelet count normal at 169. In review of her BMP, she has a normal sodium of 139, normal potassium of 3.8, normal chloride of 106. BUN is normal of 9, creatinine of 0.72. High- sensitivity troponin is less than 3. This is greater than a 6-hour troponin and regardless I think that only a single troponin is needed for her near syncope. Serum test is negative. Orthostatics obtained and reviewed and are negative. At this point in time, I do feel she can be discharged safely home to follow-up with her primary care provider with possible referral to cardiology given her palpitations, lightheadedness, and vasovagal symptoms. Return instructions to the emergency department were reviewed. Disposition is d ischarged home in stable condition. History & Record Review Discussion w/independent historian: Patient and Family Additional record(s) reviewed:: Prior ED visit and Prior labs Lab Data Attestation: I reviewed the patient's lab results. Labs: Laboratory Results - last 24 hr 06/01/22 06/01/22 06/01/22 13:26 13:26 13:26 WBC 4.5 RBC 4.39 Hgb 12.8 Hct 38.1 MCV 86.8 MCH 29.2 MCHC 33.6 RDW Std Deviation 39.6 RDW Coeff of Joy 12.5 Plt Count 169 MPV 9.4 Immature Gran % (Auto) 0.200 Neut % (Auto) 61.4 Lymph % (Auto) 30.4 [place] % (Auto) 5.5 Eos % (Auto) 1.8 Baso % (Auto) 0.7 Absolute Neuts (auto) 2.8 Absolute Lymphs (auto) 1.37 Nucleated RBC % 0 Sodium 139 Potassium 3.8 Chloride 106 Carbon Dioxide 24.0 Anion Gap 9 BUN 9 Creatinine 0.72 Estim Creat Clear Calc 97.76 Est GFR (MDRD) Af Amer 122 Est GFR (MDRD) Non-Af 101 BUN/Creatinine Ratio 12.6 Glucose 98 Calcium 9.2 Troponin I High Sens < 3 L Serum , Qual NEGATIVE Discharge Plan Triage Chief Complaint: Dizziness ED Provider: Isael Castillo Dx/Rx/DC Orders Clinical Impression: Vasovagal near syncope, Lightheadedness, Raynaud phenomenon Instructions: ED Dizziness, Uncertain Cause, ED Near-Fainting, Uncertain Cause, ED Near-Fainting- Vagal Reaction Prescriptions: No Action Prenatabs FA 1 tab PO DAILY naproxen 500 MG tablet 500 mg PO BID PRN PRN (Reason: Pain) Qty: 30 1RF azithromycin [Zithromax Z-Imer] 250 mg tablet 250 mg PO DAILY 5 Days Qty: 5 0RF Primary Care Provider: Ankur Alegria Referrals: Ankur Alegria DO [Primary Care Provider] - As soon as possible Disposition Disposition: Home, Self Care
--- NOTE | 2022-06-01 13:15 | ED.RN ---
CALLED FOR EKG, NO OLD EKGS LISTED.
[2022-06-01] MEDS: 0.9% Normal Saline 1,000 ML 1000 ML IV (13:31)
[2022-06-01 13:32] VITALS: BP 107/70; PULSE 91; RESP 16; O2SAT 99
[2022-06-01 13:45] LABS: Absolute Lymphocyte Count 1.37 X10^3/uL (0.83-4.51); Absolute Neutrophil Count 2.8 X10^3/uL (2.0-7.7); Basophil# 0.03 X10^3/uL; Basophil% 0.7 % (0-1); Eosinophil# 0.08 X10^3/uL; Eosinophils% 1.8 % (0-5); Hematocrit 38.1 % (37-47); Hemoglobin 12.8 g/dL (12.0-15.0); Lymphocyte # 1.37 X10^3/ul (0.83-4.51); Lymphocyte % 30.4 % (19-41); Mean Corp Hgb Conc 33.6 g/dL (32-36); Mean Corpuscular Hgb 29.2 pg (27.0-32.0); Mean Corpuscular Volume 86.8 fL (81-99); Mean Platelet Vol. 9.4 fl (6.2-12.0); Monocyte# 0.25 X10^3/uL; Monocyte% 5.5 % (0-10); NRBC Flagged by Analyzer 0 % (0-5); Neutrophil # 2.77 X10^3/uL (2.7-7.7); Neutrophil % 61.4 % (47-70); Platelet Count 169 K/mm3 (150-450); RBC Distribution Width CV 12.5 % (11.6-14.6); RBC Distribution Width SD 39.6 fl (35.1-43.9); Red Blood Count 4.39 M/mm3 (4.2-5.4); White Blood Count 4.5 K/mm3 (4.4-11.0)
[2022-06-01 14:01] LABS: Anion Gap 9 (5-15); BUN 9 mg/dL (7-18); BUN/Creat Ratio 12.6 RATIO (10-20); Calcium,Total 9.2 mg/dL (8.5-10.1); Chloride 106 mmol/L (98-107); Creatinine, Serum 0.72 mg/dL (0.55-1.02); EST Glomerular Filtration Rate 101 mL/min (>60); Est Glom Filt Rate - Afr Amer 122 mL/min (>60); Estimated Creatinine Clearance 97.76 ml/min; Glucose 98 mg/dL (74-106); Potassium 3.8 mmol/L (3.5-5.1); Sodium Level 139 mmol/L (136-145); Troponin-I HS < 3 pg/mL (3.0-54.0)
[2022-06-01 14:13] LABS: Internal QC Validated? YES +Cl - CLEAR BKGD; Pregnancy, Serum, hCG Quali. NEGATIVE Negative
[2022-06-01 14:52] VITALS: BP 124/71; BP 126/78; BP 127/69; PULSE 78; PULSE 89; PULSE 97
[2022-06-01 15:18] VITALS: BP 105/79; PULSE 62; RESP 15; O2SAT 98
== END 2022-06-01 15:19 | disposition home or self-care (01) ==
PROVIDERS: Emergency Provider Emergency Medicine; PCP Student in an Organized Health Care Education/Training Program; Visit Provider Emergency Medicine
DX: R55 Syncope and collapse (principal); R42 Dizziness and giddiness; I73.00 Raynaud's syndrome without gangrene
CPT/HCPCS: 80048; 84484; 84703; 85025; 93005; 96360; 99285; J7030; A4216